=== PATIENT | female | born 1985 | race Caucasian/White ===

== ENCOUNTER 2016-10-07 19:19 | Emergency (ER) | payer OTHER ==
[2016-10-07 19:51] VITALS: BP 124/77; PULSE 84; TEMP 98.1; BMI 34.1
[2016-10-07] MEDS ORDERED: SULFAMETHOXAZOLE/TRIMETHOPRIM 800MG/160MG D.S. TABLET PO ONE (20:25)
[2016-10-07] MEDS ORDERED: OXYCODONE/APAP 5/325MG COMBO TABLET PO ONE (20:25)
--- NOTE | 2016-10-07 20:31 | PDOC ---
History of Present Illness - General Chief Complaint: Abscess Boil Stated Complaint: ABCESS BOIL Time Seen by Provider: 10/07/16 19:52 - History of Present Illness Initial Comments: 10/07/16 20:26 CHIEF COMPLAINT: HISTORY OF PRESENT ILLNESS: 11-year-old female with history of hydradenitis superlative presents to fast track with abscess to right axilla. Patient states she noticed the abscess approximately 3 days ago and it has increasingly become painful painful. Patient states she has had surgery on her left axilla at [facility]. She denies any recent shaving but does state that she also gets blackheads and abscesses to her genital region. She has not seen a cable driller due to insurance problems. Patient denies fever, nausea, vomiting , diarrhea. No recent travel or sick contacts. PAST MEDICAL HISTORY: Denies past medical history FAMILY HISTORY: Denies SOCIAL HISTORY: Denies tobacco, alcohol, illicit drug use. SURGICAL HISTORY: Denies ALLERGIES: No known drug allergies REVIEW OF SYSTEMS General/Constitutional: Denies fever or chills. Denies weakness, weight change. HEENT: Denies change in vision. Denies ear pain or discharge. Denies sore throat. Cardiovascular: Denies chest pain or shortness of breath. Respiratory: Denies cough, wheezing, or hemoptysis. Gastrointestinal: Denies nausea, vomiting, diarrhea or constipation. Denies rectal bleeding. Genitourinary: Denies dysuria, frequency, or change in urination. Musculoskeletal: Denies joint or muscle swelling or pain. Denies neck or back pain. Skin and breasts: Denies rash or easy bruising. Neurologic: Denies headache, vertigo, loss of consciousness, or loss of sensation. PHYSICAL EXAM General Appearance: Well-appearing, appropriately dressed. No apparent distress , no intoxication. HEENT: EOMI, PERRLA, normal ENT inspection, normal voice, TMs normal, pharynx normal. No conjunctival pallor. No photophobia, scleral icterus. Neck: Supple. Trachea midline. No tenderness, rigidity, carotid bruit, stridor , lymphadenopathy, or thyromegaly. Respiratory/Chest: Lungs CTAB. No shortness of breath, chest tenderness, respiratory distress, accessory muscle use. No crackles, rales, rhonchi, stridor , wheezing, dullness Cardiovascular: RRR. S1, S2. No JVD, murmur, bradycardia, tachycardia. Vascular Pulses: Dorsalis-Pedis (R): 2+, Dorsalis-Pedis (L): 2+ Gastrointestinal/Abdominal: Normal bowel sounds. Abdomen soft, non-distended. No tenderness or rebound tenderness. No organomegaly, pulsatile mass, guarding , hernia, hepatomegaly, splenomegaly. Lymphatic: No adenopathy, tenderness. Musculoskeletal/Extremities: Normal inspection. FROM of all extremities, normal capillary refill. Pelvis Stable. No CVA tenderness. No tenderness to extremities, pedal edema, swelling, erythema or deformity. Integumentary: Indurated abscess to right axilla proximately 2 cm x 3 cm in size. All are 1 cm x 1 cm abscess inferior to other abscess with purulent drainage. Appropriate color, dry, warm. 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 Fully oriented, alert. Appropriate mood/affect. Motor strength 5/5. No appreciable EOM palsy, facial droop or sensory deficit. Past History - Past Medical History Allergies/Adverse Reactions: Allergies Allergy/AdvReac Type Severity Reaction Status Date / Time vancomycin Allergy Intermediate facial Verified 10/07/16 19:48 itching, swelling Home Medications: Ambulatory Orders Clindamycin [Cleocin -] 300 mg PO BID #20 capsule 10/07/16 Oxycodone HCl/Acetaminophen [Percocet 5-325 mg Tablet] 1 tab PO Q6H PRN #12 tablet MDD 4 10/07/16 Ibuprofen [Motrin -] 800 mg PO Q6H #30 tablet 10/09/16 Ondansetron HCl [Zofran] 4 mg PO Q8H #12 tablet 10/09/16 Psychiatric Problems: Yes (anxiety,panic attacks) - Reproductive History (#): 2 Para: 1 - Immunization History Immunization Up to Date: Yes - Psycho/Social/Smoking Cessation Hx Anxiety: Yes Suicidal Ideation: No Smoking Status: Yes Smoking History: Never smoked Have you smoked in the past 12 months: No Number of Cigarettes Smoked Daily: 1 Information on smoking cessation initiated: No 'Breaking Loose' booklet given: 03/22/14 Hx Alcohol Use: No Drug/Substance Use Hx: No Substance Use Type: None Hx Substance Use Treatment: No *Physical Exam - Vital Signs Last Vital Signs Temp Pulse Resp BP Pulse Ox 98.1 F 84 14 124/77 98 10/07/16 19:49 10/07/16 19:49 10/07/16 19:49 10/07/16 19:49 10/07/16 19:49 Medical Decision Making - Medical Decision Making 10/07/16 20:29 31-year-old female with history of hydradenitis super T5 presents to fast track with abscess to right axilla. Patient refuses I&D at this time." I think I'm too anxious and will be to jumpy to do it today. I'm really afraid of the pain." Will Rx Bactrim and Percocet for pain control. Advised patient to monitor abscess and if abscess grows past marked area to return to ER. Advised patient to return to ER if fever, nausea, vomiting, diarrhea develop. Patient verbalize understanding and agrees to plan. 10/07/16 20:41 *DC/Admit/Observation/Transfer Diagnosis at time of Disposition: Hidradenitis axillaris - Discharge Dispostion Disposition: HOME Condition at time of disposition: Stable Admit: No - Prescriptions Prescriptions: Clindamycin [Cleocin -] 300 mg PO BID #20 capsule Oxycodone HCl/Acetaminophen [Percocet 5-325 mg Tablet] 1 tab PO Q6H PRN #12 tablet MDD 4 PRN Reason: Pain - Referrals Referrals: Lynsey Andres MD [Staff Physician] - - Patient Instructions Printed Discharge Instructions: Hidradenitis Suppurativa Additional Instructions: Please take medication as prescribed. As discussed you must call your insurance and follow-up with a cable driller. Also as discussed, if the abscess goes past the marked area, or you develop fever, nausea, vomiting, diarrhea, or any new or worsening symptoms, please return to the ER.
[2016-10-07] MEDS ORDERED: OXYCODONE/APAP 5/325MG COMBO TABLET ONE (20:34)
[2016-10-07] MEDS ORDERED: SULFAMETHOXAZOLE/TRIMETHOPRIM 800MG/160MG D.S. TABLET ONE (20:34)
== END 2016-10-07 20:59 | disposition home or self-care (01) ==
LOC: JERFT 19:19
DX: L73.2 Hidradenitis suppurativa (principal)
CPT/HCPCS: 84703; 99281-25

== ENCOUNTER 2017-01-29 11:28 | Emergency (ER) | payer OTHER ==
[2017-01-29 11:32] VITALS: BP 146/70; PULSE 99; TEMP 98.3; BMI 34.9
--- NOTE | 2017-01-29 12:54 | PDOC ---
History of Present Illness - General Chief Complaint: Abscess Boil Stated Complaint: ABSCESS BOIL Time Seen by Provider: 01/29/17 12:13 History Source: Patient Exam Limitations: No Limitations - History of Present Illness Initial Comments: 01/29/17 13:15 Chief complaint: Worsening abscess on buttocks History of present illness: Patient is a 31-year-old female with a history of hydradenitis suppuritiva today complaining of a worsening abscess on her left medial buttocks that started 3 days ago. Patient denies any fever. Patient denies any difficulty having a bowel movement. Timing/Duration: getting worse Severity: moderate (left medial buttock ) Past History - Past Medical History Allergies/Adverse Reactions: Allergies Allergy/AdvReac Type Severity Reaction Status Date / Time vancomycin Allergy Intermediate facial Verified 01/29/17 11:29 itching, swelling Home Medications: Ambulatory Orders Doxycycline Hyclate [Vibramycin -] 100 mg PO BID #20 cap 01/29/17 Psychiatric Problems: Yes (anxiety,panic attacks) - Reproductive History (#): 2 Para: 1 - Immunization History Immunization Up to Date: Yes - Psycho/Social/Smoking Cessation Hx Anxiety: Yes Suicidal Ideation: No Smoking Status: Yes Smoking History: Never smoked Have you smoked in the past 12 months: No Number of Cigarettes Smoked Daily: 1 Information on smoking cessation initiated: No 'Breaking Loose' booklet given: 03/22/14 Hx Alcohol Use: No Drug/Substance Use Hx: No Substance Use Type: None Hx Substance Use Treatment: No Review of Systems - Review of Systems Able to Perform ROS?: Yes Constitutional: No: Symptoms Reported HEENTM: No: Symptoms Reported Respiratory: No: Symptoms reported Cardiac (ROS): No: Symptoms Reported ABD/GI: No: Symptoms Reported : No: Symptoms Reported Musculoskeletal: No: Symptoms Reported Integumentary: Yes: Erythema (raised area of erythema approx 6 cm diameter left medial buttock ) *Physical Exam - Vital Signs Last Vital Signs Temp Pulse Resp BP Pulse Ox 98.3 F 99 H 18 146/70 100 01/29/17 11:29 01/29/17 11:29 01/29/17 11:29 01/29/17 11:01/29/17 11:29 - Physical Exam General Appearance: Yes: Appropriately Dressed Respiratory/Chest: positive: Lungs Clear, Normal Breath Sounds Cardiovascular: positive: Regular Rhythm, Regular Rate, S1, S2 Integumentary: positive: Erythema (left medial buttock area raised diameter 6 cm fluculant) Medical Decision Making - Medical Decision Making 01/29/17 13:17 Patient is a 31-year-old female with a history of hydradenitis suppuritiva today complaining of a worsening abscess on her left medial buttocks that started 3 days ago. Patient denies any fever. Patient denies any difficulty having a bowel movement. Abscess left medial buttocks Plan: Consult with urine HCG negative doxycycline 100 mg bid for 10 days sitz bath tid for 10-15 minutes Patient to take ibuprofen 600 mg every 6 hours as needed for pain and may take acetaminophen 1000 mg in between doses of ibuprofen if pain persists patient to follow up with primary later this week or return to ER if any fever , increased redness, pain 01/29/17 13:48 hcg negative 01/29/17 13:55 *DC/Admit/Observation/Transfer Diagnosis at time of Disposition: Hidradenitis suppurativa - Discharge Dispostion Disposition: HOME Condition at time of disposition: Stable - Patient Instructions Additional Instructions: Take ibuprofen 600 mg that she would have at home every 6 hours as needed for pain and may alternate with acetaminophen 1000 mg every 4 hours as needed for pain in between doses of ibuprofen Take sitz bath warm for at least three times a day for 10- 15 minutes Follow-up with your primary care provider later this week Return to emergency room if any fever, chills or worsening redness and size of reddened area or worsening pain Avoid time in the sun while taking this antibiotic must wear sunscreen Patient voiced understanding of discharge instructions and all questions were answered
--- NOTE | 2017-01-29 14:07 | CONSULT ---
Consult Consult Specialty:: General Surgery Referred by:: Love Carver Reason for Consultation:: perirectal hidradenitis - History of Present Illness Chief Complaint: red, swollen area left perirectal area History of Present Illness: 31yo F with many years' h/o hidradenitis at multiple sites - axillae, groins, inframammary folds, perirectal area, presents with pain, redness and swelling at the left gluteal/perirectal region for the last 3 days. She also has a small , early inflamed area under her left breast for about a week. In the past, she has taken Bactrim periodically for flares, but not in the last few months. She has not seen her PMD (Dr. Jorge Swift) nor her band reamer machine operator for "a while." She is still having normal BMs, last yesterday. No urinary complaints. About 4-5 years ago, she had excision of her left axilla for hidradenitis, and has had (likely I &D) procedure(s) on her right axilla as well. No systemic symptoms or complaints , including f/c, n/v. She does occasionally have drainage from her R axilla. The current flaring areas have not drained as of yet but are painful and tender. - History Source History Provided By: Patient Limitations to Obtaining History: No Limitations - Past Medical History ...LMP: 01/13/17 ...: No ...: 1 ...Para: 1 (10 yrs ago) Dermatology: Yes: Other (hidradenitis suppurativa) - Past Surgical History Past Surgical History: Yes: Additional Surgical History: excision of hidradenitis L axilla, I&D of same R axilla - Alcohol/Substance Use Hx Alcohol Use: Yes (rare social) History of Substance Use: reports: None - Smoking History Smoking history: Current some day smoker (1 cig/week, down from 1/day 8 mos ago , x ~10 years) Have you smoked in the past 12 months: Yes Aproximately how many cigarettes per day: 0 (1 a week) Home Medications - Allergies Allergies/Adverse Reactions: Allergies Allergy/AdvReac Type Severity Reaction Status Date / Time vancomycin Allergy Intermediate facial Verified 01/29/17 11:29 itching, swelling - Home Medications Home Medications: Ambulatory Orders Doxycycline Hyclate [Vibramycin -] 100 mg PO BID #20 cap 01/29/17 Family Disease History - Family Disease History Family History: Unremarkable Review of Systems - Review of Systems Constitutional: denies: Chills, Fever Eyes: denies: Blurred Vision, Double Vision HENT: denies: Difficult Swallowing, Nasal Congestion, Throat Pain Neck: denies: Swollen Glands, Tenderness Cardiovascular: denies: Chest Pain, Palpitations Respiratory: denies: Cough, SOB Gastrointestinal: denies: Abdominal Pain, Constipation, Diarrhea, Nausea, Vomiting Genitourinary: denies: Burning, Dysuria, Frequency, Urgency Breasts: reports: See HPI, Skin Changes (under left breast) Musculoskeletal: denies: Back Pain, Joint Pain, Muscle Pain Integumentary: reports: Other (multiple sites affected by hidradenitis - axillae , groins, inframammary, gluteal cleft/perirectal area). denies: Rash Neurological: denies: Dizziness, Headache, Weakness Physical Exam Vital Signs: Vital Signs Temperature 98.3 F 01/29/17 11:29 Pulse Rate 99 H 01/29/17 11:29 Respiratory Rate 18 01/29/17 11:29 Blood Pressure 146/70 01/29/17 11:29 O2 Sat by Pulse Oximetry (%) 100 01/29/17 11:29 Constitutional: Yes: Well Nourished, No Distress, Calm, Obese Eyes: Yes: Conjunctiva Clear, EOM Intact HENT: Yes: Atraumatic, Normocephalic Cardiovascular: Yes: Regular Rate and Rhythm. No: Murmur Respiratory: Yes: Regular, CTA Bilaterally Gastrointestinal: Yes: Normal Bowel Sounds, Soft, Other (healed Pfannenstiel scar). No: Tenderness Renal/: No: CVA Tenderness - Left, CVA Tenderness - Right, Menses Present Breast(s): Yes: Left (inferiorly above inframammary fold, just medial to nipple line, ~1cm erythematous round swelling, tender, mildly indurated, not frankly fluctuant, no active drainage), Skin Changes (few scattered healed spots in inframammary folds) Musculoskeletal: No: Back Pain, Joint Swelling Extremities: Yes: Other (L axilla with well-healed scars from excisional surgery ; R axilla with linear scars and indurated folds, tender, minimal erythema, no active drainage but patient does report intermittent drainage). No: Cool, Cyanosis Edema: No Peripheral Pulses WNL: Yes Integumentary: Yes: Other (bilateral groins with scattered healed spots/scars, no significant active lesions at this time). No: Rash Neurological: Yes: Alert, Oriented. No: Unsteady Gait Psychiatric: Yes: Alert, Oriented Labs: Hcg negative Problem List - Problems (1) Hidradenitis suppurativa Assessment/Plan: Pt with h/o multiple affected sites, no recent antibiotics, has not seen primary MD nor band reamer machine operator in recent past. Inflamed lesion under left breast and developing abscess in left perirectal/ gluteal area. Pt is to continue sitz baths tid and after each BM. Will have ER Rx Doxycycline x 10 days (may need longer) - pt counseled to avoid sun exposure and use sunscreen. She is not . Recommended alternating Tylenol and ibuprofen for pain - q6H each, 3 hours apart to alternate for synergy Avoiding narcotic to avoid constipation Pt should f/u later this week with PMD and/or band reamer machine operator - recommend reestablishing regular care with both. She should return to ER if symptoms worsen rather than improve, or for fever, spreading redness/hardness/fluctuance, severe pain.. To see me in clinic may require insurance referral and/or authorization. She may call the office to make an appointment at [phone]. Thank you for the opportunity to participate in the care of this patient. Code(s): L73.2 - HIDRADENITIS SUPPURATIVA
== END 2017-01-29 14:00 | disposition home or self-care (01) ==
LOC: JERFT 11:28
DX: L02.31 Cutaneous abscess of buttock (principal); L73.2 Hidradenitis suppurativa
CPT/HCPCS: 84703; 99281-25

== ENCOUNTER 2017-04-20 17:45 | Emergency (ER) | payer OTHER ==
[2017-04-20 18:12] VITALS: BP 133/75; PULSE 89; TEMP 98.7; BMI 34.9
--- NOTE | 2017-04-20 20:06 | PDOC ---
History of Present Illness - General Chief Complaint: Abscess Boil Stated Complaint: ABSCESS BOIL Time Seen by Provider: 04/20/17 20:01 History Source: Patient Exam Limitations: No Limitations - History of Present Illness Initial Comments: 04/20/17 20:07 Chin here well-known to this emergency Department with hidradenitis and recurrent abscess to her right axilla. States started approximately 3 days ago and has been unable to open with hot compresses. Denies fever but has exquisite pain. Patient has long history of same with excision of foot glands to her left axilla a few years ago. Recurrence of abscesses has continued. 04/20/17 20:43 Timing/Duration: reports: constant, getting worse, intermittent Severity: Yes: moderate Location: reports: other (axilla) Associated Symptoms: reports: fever, malaise Past History - Travel Traveled outside of the country in the last 30 days: No Close contact w/someone who was outside of country & ill: No - Past Medical History Allergies/Adverse Reactions: Allergies Allergy/AdvReac Type Severity Reaction Status Date / Time vancomycin Allergy Intermediate facial Verified 04/20/17 18:12 itching, swelling Home Medications: Ambulatory Orders Oxycodone HCl/Acetaminophen [Percocet 5-325 mg Tablet] 1 tab PO Q6H #10 tablet MDD 6 04/20/17 Sulfamethoxazole/Trimethoprim [Bactrim Ds -] 1 tab PO BID #14 tablet 04/20/17 Psychiatric Problems: Yes (anxiety,panic attacks) - Reproductive History (#): 2 Para: 1 - Immunization History Immunization Up to Date: Yes - Suicide/Smoking/Psychosocial Hx Smoking Status: Yes Smoking History: Current every day smoker Have you smoked in the past 12 months: No Number of Cigarettes Smoked Daily: 0 (1 a week) If you are a former smoker, when did you quit?: 2yrs Information on smoking cessation initiated: No 'Breaking Loose' booklet given: 03/22/14 Hx Alcohol Use: No Drug/Substance Use Hx: No Substance Use Type: None Hx Substance Use Treatment: No Review of Systems - Review of Systems Able to Perform ROS?: Yes Is the patient limited Sami proficient: Yes Constitutional: Yes: See HPI HEENTM: Yes: Symptoms Reported Musculoskeletal: Yes: Symptoms Reported, Joint Pain, Joint Swelling (right arm shoulder) Integumentary: Yes: Symptoms Reported, See HPI All Other Systems: Reviewed and Negative *Physical Exam - Vital Signs Last Vital Signs Temp Pulse Resp BP Pulse Ox 98.7 F 89 18 133/75 100 04/20/17 18:03 04/20/17 18:03 04/20/17 18:03 04/20/17 18:03 04/20/17 18:03 - Physical Exam General Appearance: Yes: Nourished, Appropriately Dressed, Apparent Distress, Mild Distress, Moderate Distress HEENT: positive: TOR, Normal ENT Inspection, TMs Normal, Pharynx Normal Neck: positive: Supple, Lymphadenopathy (R), Lymphadenopathy (L) Respiratory/Chest: positive: Lungs Clear, Normal Breath Sounds Musculoskeletal: positive: Normal Inspection Extremity: positive: Normal Capillary Refill, Normal Inspection. negative: Normal Range of Motion Integumentary: positive: Other (erythematous right axilla with extensive scarring and pointing lesion with 1 large abscess approximately 3 cm midpoint. Patient has exquisite tenderness at same site.). 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 Packing placed patient given first dose of Bactrim, 2 Percocet tablets for pain relief, and will follow up with surgery for definitive treatment *DC/Admit/Observation/Transfer Diagnosis at time of Disposition: Hidradenitis axillaris, Abscess of axilla, right - Discharge Dispostion Disposition: HOME Condition at time of disposition: Stable Admit: No - Referrals Referrals: Glenis Swift MD [Primary Care Provider] - Donta Min MD [Staff Physician] - - Patient Instructions Printed Discharge Instructions: DI for Incision and Drainage of a Skin Abscess Additional Instructions: Rest, keep area elevated. Avoid strenuous activity or exercise until wound is healed Use hot soaks to area to bring more blood to the surface and encourage drainage May change dressings as needed to keep clean - trying to avoid removal of packing for 2 days. If packing needs to be changed, return to emergency department or with your followup physician for wound care and evaluation and repacking as needed If packing needs to be removed, then in 2 days, while in the shower remove dressing and quickly pull the packing taken out. Allow water from shower to wash area thoroughly for 2-3 minutes, and pat dry upon exit of shower and replace dressing. Change his dressing daily until the wound is completely healed. May use Tylenol or Motrin for mild pain relief Use stronger medications as directed and prescribed Continue all medications as prescribed Followup with private physician in 2-3 days for wound check Return to emergency Department for worsening swelling, pain, redness, fevers as needed Mefoxin resistant Staphylococcus aureus is a normal skin bacteria and is mutated to be resistant to penicillin type drugs. The wounds may be draining and there for contagious to other family members. Vigorous handwashing and avoidance of skin contact of draining lesions it is important . All family members Will need to be protected and perform thorough cleaning of linens /towels/clothing. To decontaminate household: Soak in bath; in one half cup of bleach in 1 full tub of water 2 times a week x3 weeks With own scrub Nylon use chlorohexidine soap twice a week to decontaminate skin Clean tub /toilet with bleach wipes after each use Do not use same linens/avoid contact until lesions are healed Followup with private physician/bale tie machine operator Take all of Bactrim as directed May use ibuprofen or Tylenol for pain relief Followup with PMD in one week if no resolution Make appointment with bale tie machine operator for evaluation when possible - Post Discharge Activity Forms/Work/School Notes: Back to Work
[2017-04-20] MEDS ORDERED: SULFAMETHOXAZOLE/TRIMETHOPRIM 800MG/160MG D.S. TABLET PO ONE (20:16)
[2017-04-20] MEDS ORDERED: SULFAMETHOXAZOLE/TRIMETHOPRIM 800MG/160MG D.S. TABLET ONE (20:28)
== END 2017-04-20 20:53 | disposition home or self-care (01) ==
LOC: JERFT 17:45
PROC: 0X943ZZ Drainage of Right Axilla, Percutaneous Approach (ICD-10-PCS; principal; 2017-04-20)
DX: L73.2 Hidradenitis suppurativa (principal)
CPT/HCPCS: 10060; 87070; 87205; 99281-25

== ENCOUNTER 2018-01-13 06:23 | Emergency (ER) | payer OTHER ==
[2018-01-13 06:54] VITALS: BP 106/52; PULSE 83; TEMP 97.1; BMI 35.2
--- NOTE | 2018-01-13 07:21 | PDOC ---
Attending Attestation - HPI HPI: 01/13/18 08:21 The patient is a 32 year old female with significant PMH who presents to the emergency department with vaginal bleeding for 1 day. The patient report that she was at home when she noticed her vaginal bleeding with intercourse. The patient reports that she took a positive at home test and reports being at least 6 week . She reports associated lower abdominal cramping with her vaginal bleeding. The patient reports that this is her third (). The patient states that her last period was 8 weeks ago. The patient reports that she has an upcoming OB appoinment but was concerned about her vaginal bleeding. The patient denies any other symptoms. She denies any urinary frequency, urgency, dysuria, or hematuria. She denies any fever, chills , nausea, vomit, diarrhea and constipation. She denies any chest pain, shortness of breath, headache and dizziness. The patient denies any other complaints. Allergies: Vancomycin PCP: Dr. Swift OB: Dr. Fernandez - Physicial Exam PE: 01/13/18 08:21 GENERAL: Awake, alert, and fully oriented, in no acute distress HEAD: No signs of trauma EYES: PERRLA, EOMI, sclera anicteric, conjunctiva clear ENT: Auricles normal inspection, hearing grossly normal, nares patent, oropharynx clear without exudates. Moist mucosa NECK: Normal ROM, supple, no lymphadenopathy, JVD, or masses LUNGS: Breath sounds equal, clear to auscultation bilaterally. No wheezes, and no crackles HEART: Regular rate and rhythm, normal S1 and S2, no murmurs, rubs or gallops ABDOMEN: Soft,obese, nontender, normoactive bowel sounds. No guarding, no rebound. No masses EXTREMITIES: Normal range of motion, no edema. No clubbing or cyanosis. No cords, erythema, or tenderness NEUROLOGICAL: Cranial nerves II through XII grossly intact. Normal speech, normal gait SKIN: Warm, Dry, normal turgor, no rashes or lesions noted. Vaginal exam as per resident note. Documentation prepared by Yamile Finch, acting as medical staff physician for Kanwal Hui MD. <Yamile Finch - Last Filed: 01/13/18 08:21> - Resident Resident Name: Yola Cole - ED Attending Attestation I have performed the following: I have examined & evaluated the patient, The case was reviewed & discussed with the resident, I agree w/resident's findings & plan, Exceptions are as noted - Medical Decision Making 01/13/18 07:21 I, Dr. Kanwal Hui, DO, attest that this document has been prepared under my direction and personally reviewed by me in its entirety. I further attest, that it accurately reflects all work, treatment, procedures and medical decision -making performed by me. 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
--- NOTE | 2018-01-13 07:46 | PDOC ---
History of Present Illness - General Chief Complaint: Vaginal Bleeding Stated Complaint: VAGINAL BLEEDING (6 WEEKS PREG) Time Seen by Provider: 01/13/18 07:15 History Source: Patient Exam Limitations: No Limitations - History of Present Illness Initial Comments: This is a 32 YO (~6 wks by LMP), prior D&C, and treatment for BV within the past month, who p/w light bright red vaginal bleeding for the past 5 hours onset immediately after having sexual intercourse (which she described as not rough). The bleeding has mostly stopped and she denies any passage of light-colored tissue or blood clots. She additionally notes very mild lower abdominal cramping but attributes this to being nervous, and notes this has been present earlier this as well. She denies fever, chills, nausea, vomiting, diarrhea, constipation, abnormal vaginal discharge, rashes, headache, dizziness, neck/back pain, chest pain, SOB, or other symptoms. Past History - Past Medical History Allergies/Adverse Reactions: Allergies Allergy/AdvReac Type Severity Reaction Status Date / Time vancomycin Allergy Intermediate facial Verified 01/13/18 06:51 itching, swelling Home Medications: Ambulatory Orders Oxycodone HCl/Acetaminophen [Percocet 5-325 mg Tablet] 1 tab PO Q6H #10 tablet MDD 6 04/20/17 Psychiatric Problems: Yes (anxiety,panic attacks) - Reproductive History (#): 2 Para: 1 - Immunization History Immunization Up to Date: Yes - Suicide/Smoking/Psychosocial Hx Smoking Status: Yes Smoking History: Current every day smoker Have you smoked in the past 12 months: Yes Number of Cigarettes Smoked Daily: 5 If you are a former smoker, when did you quit?: 2yrs Information on smoking cessation initiated: No 'Breaking Loose' booklet given: 03/22/14 Hx Alcohol Use: No Drug/Substance Use Hx: No Substance Use Type: None Hx Substance Use Treatment: No Review of Systems - Review of Systems Able to Perform ROS?: Yes Constitutional: No: Chills, Fever, Unexplained wgt Loss HEENTM: No: Nose Congestion, Throat Pain Respiratory: No: Cough, Shortness of Breath Cardiac (ROS): No: Chest Pain, Palpitations ABD/GI: Yes: Other (mild low abdominal cramping). No: Constipated, Diarrhea, Nausea, Vomiting : Yes: Other (vaginal bleeding). No: Burning, Dysuria Musculoskeletal: No: Back Pain, Neck Pain Integumentary: No: Bruising, Rash Neurological: No: Headache, Numbness, Tingling, Weakness, Dizziness Endocrine: No: Unexplained Weight Gain, Unexplained Weight Loss *Physical Exam - Vital Signs Last Vital Signs Temp Pulse Resp BP Pulse Ox 97.1 F L 83 20 106/52 99 01/13/18 06:51 01/13/18 06:51 01/13/18 06:51 01/13/18 06:51 01/13/18 06:51 - Physical Exam General Appearance: Yes: Nourished, Appropriately Dressed, Obese, Other ( initially mildly tearful, alert, oriented, conversive, accompanied by significant other, answering questions appropriately). No: Apparent Distress HEENT: positive: EOMI, TOR, Normal Voice, Hearing Grossly Normal. negative: Scleral Icterus (R), Scleral Icterus (L), Nasal Congestion Neck: positive: Trachea midline, Supple. negative: Tender, Rigid Respiratory/Chest: positive: Lungs Clear, Normal Breath Sounds. negative: Respiratory Distress, Crackles, Rhonchi, Stridor, Wheezing Cardiovascular: positive: Regular Rhythm, Regular Rate, S1, S2. negative: Edema , JVD, Murmur Female Pelvic Exam: positive: normal external exam, cervical os closed, normal adnexa, vaginal bleeding (minimal with one small dark clot). negative: CMT, discharge, lesions, adnexal tenderness Gastrointestinal/Abdominal: positive: Normal Bowel Sounds, Flat, Soft. negative : Tender, Organomegaly, Pulsatile Mass, Guarding Musculoskeletal: positive: Normal Inspection. negative: Decreased Range of Motion, Vertebral Tenderness Extremity: positive: Normal Capillary Refill, Normal Inspection, Normal Range of Motion. negative: Tender, Cyanosis Integumentary: positive: Normal Color, Dry, Warm. negative: Erythema, Rash, Bruising Neurologic: positive: economics faculty member II-XII NML intact (grossly), Fully Oriented, Alert, Normal Mood/Affect, Normal Response, Motor Strength 5/5. negative: Facial Droop , Numbness, Sensory Deficit, Confused, Disoriented ED Treatment Course - LABORATORY CBC & Chemistry Diagram: 01/13/18 08:16 01/13/18 08:16 Medical Decision Making - Medical Decision Making 01/13/18 07:40 First trimester female p/w vaginal bleeding and lower abdominal pain at <20 wks gestation. Initial Vital Signs Temp Pulse Resp BP Pulse Ox 97.1 F L 83 20 106/52 99 01/13/18 06:51 01/13/18 06:51 01/13/18 06:51 01/13/18 06:51 01/13/18 06:51 Exam: well appearing, a bit tearful/anxious, normal heart/lung/abdomen exam, pelvic with os closed, small amount of medium red blood with one clot and no POC visualized, no tenderness. DDX IBNLT: threatened/inevitable/incomplete/complete/septic , ectopic, PID, TOA/cervicitis, endometritis, ruptured ovarian cyst, ovarian torsion, malignancy, menorrhagia, endometriosis, rectal bleed, hematuria, constipation, fibroids, etc. W/U ordered: CBCD CMP Mg T&S UA UCx hCG Quant TVUS. TX ordered: None Laboratory Tests 01/13/18 01/13/18 01/13/18 08:16 08:16 08:16 WBC 12.5 H D RBC 4.55 Hgb 11.4 Hct 35.5 MCV 78.2 L MCH 25.1 L MCHC 32.1 RDW 17.0 H Plt Count 329 MPV 7.8 Absolute Neuts (auto) 9.5 Neutrophils % 76.2 Lymphocytes % 17.3 Monocytes % 5.5 Eosinophils % 0.5 Basophils % 0.5 Nucleated RBC % 0 Sodium 135 L Potassium 4.1 Chloride 102 Carbon Dioxide 25 Anion Gap 8 BUN 8 Creatinine 0.8 Creat Clearance w eGFR > 60 Random Glucose 85 Calcium 8.9 Magnesium 1.9 Total Bilirubin 0.3 D AST 12 L ALT 23 Alkaline Phosphatase 71 Total Protein 8.4 H Albumin 3.5 Beta HCG, Quant 60472.6 Urine Color Straw Urine Appearance Clear Urine pH 5.0 Ur Specific [place] 1.009 Urine Protein Negative Urine Glucose (UA) Negative Urine Ketones Negative Urine Blood 1+ H Urine Nitrite Negative Urine Bilirubin Negative Urine Urobilinogen Negative Ur Leukocyte Esterase Negative Urine WBC (Auto) <1 Urine RBC (Auto) None Ur Epithelial Cells Rare Blood Type Antibody Screen 01/13/18 08:16 WBC RBC Hgb Hct MCV MCH MCHC RDW Plt Count MPV Absolute Neuts (auto) Neutrophils % Lymphocytes % Monocytes % Eosinophils % Basophils % Nucleated RBC % Sodium Potassium Chloride Carbon Dioxide Anion Gap BUN Creatinine Creat Clearance w eGFR Random Glucose Calcium Magnesium Total Bilirubin AST ALT Alkaline Phosphatase Total Protein Albumin Beta HCG, Quant Urine Color Urine Appearance Urine pH Ur Specific [place] Urine Protein Urine Glucose (UA) Urine Ketones Urine Blood Urine Nitrite Urine Bilirubin Urine Urobilinogen Ur Leukocyte Esterase Urine WBC (Auto) Urine RBC (Auto) Ur Epithelial Cells Blood Type A POSITIVE Antibody Screen Negative Blood type is: A positive US: gestational sac identified but no yolk sac, age estimated 5 wks 3 days, myomatous uterus. Reassessment: repeat exam unchanged Repeat VS: DISCHARGE The Pt does not require Rhogam. Workup is not concerning for emergency-level pathology at this time. The Pt is appropriate for discharge home w/ close outpatient f/u. She will also follow up with her BLEACH BOILER PACKER as scheduled tomorrow. She will take primarily Tylenol for pain. Specific return precautions are discussed and they will come back to the ER if necessary. *DC/Admit/Observation/Transfer Diagnosis at time of Disposition: Vaginal bleeding during - Discharge Dispostion Disposition: HOME Condition at time of disposition: Stable Decision to Admit order: No - Referrals Referrals: Glenis Swift MD [Primary Care Provider] - - Patient Instructions Additional Instructions: You were seen in the ER for vaginal bleeding in early . We did an exam , laboratory work on your blood and urine, and an ultrasound. After our assessment, we do not think you are having a medical emergency at this time, and you are safe to go home. Please take Tylenol for any mild-moderate pain. Follow up with your advertising writer as scheduled tomorrow. You also need a repeat ultrasound in one week, and a repeat beta-hCG ( hormone) test in 2 days. Please come back to the ER at any time (24 hours a day) for any new or worsening symptoms, like worsening pelvic pain, discharge, high fever, headache , seizure, fainting, anemia, large amount of blood loss, or other symptoms. If you are having severe or life threatening symptoms, or symptoms that make it unsafe to drive or have someone drive you, please call 911. - Post Discharge Activity
[2018-01-13 08:28] LABS: BASO % 0.5 % (0-2.0); EOS % 0.5 % (0-4.5); HEMATOCRIT 35.5 % (32.4-45.2); HEMOGLOBIN 11.4 GM/dL (10.7-15.3); LYMPH % 17.3 % (8-40); MCH 25.1 pg (25.7-33.7); MCHC 32.1 g/dl (32.0-36.0); MEAN CELL VOLUME 78.2 fl (80-96); MEAN PLT VOLUME 7.8 fl (7.5-11.1); MONO % 5.5 % (3.8-10.2); NEUT % 76.2 % (42.8-82.8); PLATELET COUNT 329 K/MM3 (134-434); RBC 4.55 M/mm3 (3.60-5.2); WHITE BLOOD COUNT 12.5 K/mm3 (4.0-10.0)
[2018-01-13 08:30] LABS: URINE APPEARANCE CLEAR; URINE BILIRUBIN NEGATIVE (<2.0 mg/dL); URINE COLOR STRAW; URINE GLUCOSE (UA) NEGATIVE (NEGATIVE); URINE KETONE NEGATIVE (NEGATIVE); URINE LEUK ESTERASE NEGATIVE (NEGATIVE); URINE NITRITE NEGATIVE (NEGATIVE); URINE PROTEIN NEGATIVE (NEGATIVE); URINE UROBILINOGEN NEGATIVE mg/dL (0.2-1.0)
[2018-01-13 08:34] LABS: EPI CELLS RARE /HPF (FEW)
[2018-01-13 08:49] LABS: ALBUMIN 3.5 g/dl (3.4-5.0); ANION GAP 8 (8-16); BLOOD UREA NITROGEN 8 mg/dL (7-18); CALCIUM 8.9 mg/dL (8.5-10.1); CHLORIDE 102 mmol/L (98-107); CO2 25 mmol/L (21-32); CREATININE 0.8 mg/dL (0.55-1.02); GLUCOSE,RANDOM 85 mg/dL (74-106); MAGNESIUM 1.9 mg/dL (1.8-2.4); POTASSIUM 4.1 mmol/L (3.5-5.1); SGOT/AST 12 U/L (15-37); SGPT/ALT 23 U/L (12-78); SODIUM 135 mmol/L (136-145); TOT PROT 8.4 g/dl (6.4-8.2)
[2018-01-13 09:06] LABS: ALK PHOS 71 U/L (45-117); BILIRUBIN,TOTAL 0.3 mg/dL (0.2-1.0)
== END 2018-01-13 11:30 | disposition home or self-care (01) ==
LOC: JER 06:23
DX: O26.891 Other specified pregnancy related conditions, first trimester (principal); O20.8 Other hemorrhage in early pregnancy; Z3A.01 Less than 8 weeks gestation of pregnancy
CPT/HCPCS: 36415; 76817-TC; 80053; 81003; 81015; 83735; 84702; 85025; 86850; 86900; 86901; 87086; 99281-25

== ENCOUNTER 2018-04-16 21:53 | Emergency (ER) | payer OTHER ==
[2018-04-16 22:10] VITALS: BP 112/70; PULSE 115; TEMP 99.2; BMI 37.4
--- NOTE | 2018-04-16 22:46 | PDOC ---
History of Present Illness - General History Source: Patient Exam Limitations: No Limitations - History of Present Illness Travel History: No Initial Comments: 04/16/18 23:36 The patient is a 32-year-old female, ; 1 miscarriage, with no past medical history, who presents to the ED with left-sided abdominal cramping that began yesterday. Patients symptoms worsened today. She denies any vaginal bleeding. She denies any fevers or chills. She denies any right-sided abdominal pain. The patient admits to having sexual intercourse today. She called her OBs office today and was told to drink a lot of water. Patient had one episode of vomiting today which helped to alleviate the pain. The patient denies any diarrhea or constipation. She denies any urinary symptoms. Allergies: vancomycin. Surgical History: . Social History: Denies. Surgical History: Denies. <Annia Posadas - Last Filed: 04/16/18 23:36> <Brittnee Jenkins - Last Filed: 04/17/18 00:41> - General Chief Complaint: Pain Stated Complaint: 19 WEEKS ,ABDOMINAL PAIN Past History <Annia Posadas - Last Filed: 04/16/18 23:36> - Past Medical History COPD: No Psychiatric Problems: Yes (anxiety,panic attacks) - Reproductive History (#): 2 Para: 1 - Immunization History Immunization Up to Date: Yes - Suicide/Smoking/Psychosocial Hx Smoking Status: Yes Smoking History: Former smoker Have you smoked in the past 12 months: Yes Number of Cigarettes Smoked Daily: 5 If you are a former smoker, when did you quit?: 2yrs Information on smoking cessation initiated: No 'Breaking Loose' booklet given: 03/22/14 Hx Alcohol Use: No Drug/Substance Use Hx: No Substance Use Type: None Hx Substance Use Treatment: No <Brittnee Jenkins - Last Filed: 04/17/18 00:41> - Past Medical History Allergies/Adverse Reactions: Allergies Allergy/AdvReac Type Severity Reaction Status Date / Time vancomycin Allergy Intermediate facial Verified 04/16/18 22:10 itching, swelling Home Medications: Ambulatory Orders Prenat 115/Iron Fum/Folic/Dss [ 19 Tablet] 1 each PO DAILY 04/16/18 Review of Systems - Review of Systems Able to Perform ROS?: Yes Comments:: 04/16/18 23:37 CONSTITUTIONAL: Absent: fever, chills, diaphoresis, generalized weakness, malaise, loss of appetite HEENT: Absent: rhinorrhea, nasal congestion, throat pain, throat swelling, difficulty swallowing, mouth swelling, ear pain, eye pain, visual Changes CARDIOVASCULAR: Absent: chest pain, syncope, palpitations, irregular heart rate, lightheadedness , peripheral edema RESPIRATORY: Absent: cough, shortness of breath, dyspnea with exertion, orthopnea, wheezing, stridor, hemoptysis GASTROINTESTINAL: Present: abdominal pain, nausea, vomiting. Absent: abdominal distension, diarrhea, constipation, melena, hematochezia GENITOURINARY: Absent: dysuria, frequency, urgency, hesitancy, hematuria, flank pain, genital pain MUSCULOSKELETAL: Absent: myalgia, arthralgia, joint swelling SKIN: Absent: rash, itching, pallor HEMATOLOGIC/IMMUNOLOGIC: Absent: easy bleeding, easy bruising, lymphadenopathy, frequent infections ENDOCRINE: Absent: unexplained weight gain, unexplained weight loss, heat intolerance, cold intolerance NEUROLOGIC: Absent: headache, focal weakness or paresthesias, dizziness, unsteady gait, seizure, mental status changes, bladder or bowel incontinence PSYCHIATRIC: Absent: anxiety, depression, suicidal or homicidal ideation, hallucinations. <Annia Posadas - Last Filed: 04/16/18 23:36> *Physical Exam - Vital Signs Last Vital Signs Temp Pulse Resp BP Pulse Ox 99.2 F 115 H 19 112/70 100 04/16/18 22:07 04/16/18 22:07 04/16/18 22:07 04/16/18 22:07 04/16/18 22:07 - Physical Exam Comments: 04/16/18 23:37 GENERAL: Well developed, well nourished. Awake and alert. No acute distress. HEENT: Normocephalic, atraumatic. PERRLA, EOMI. No conjunctival pallor. Sclera are non- icteric. Moist mucous membranes. Oropharynx is clear. NECK: Supple. Full ROM. No JVD. Carotid pulses 2+ and symmetric, without bruits. No thyromegaly. No lymphadenopathy. CARDIOVASCULAR: Regular rate and rhythm. No murmurs, rubs, or gallops. Distal pulses are 2+ and symmetric. PULMONARY: No evidence of respiratory distress. Lungs clear to auscultation bilaterally. No wheezing, rales or rhonchi. ABDOMINAL: (+)Protuberant belly, Left-sided lower abdominal discomfort. Soft. Non- distended. No rebound or guarding. No organomegaly. Normoactive bowel sounds. MUSCULOSKELETAL Normal range of motion at all joints. No bony deformities or tenderness. No CVA tenderness. EXTREMITIES: No cyanosis. No clubbing. No edema. No calf tenderness. SKIN: Warm and dry. Normal capillary refill. No rashes. No jaundice. NEUROLOGICAL: Alert, awake, appropriate. Cranial nerves 2-12 intact. No deficits to light touch and temperature in face, upper extremities and lower extremities. No motor deficits in the in face, upper extremities and lower extremities. PSYCHIATRIC: Cooperative. Good eye contact. Appropriate mood and affect. <Annia Posadas - Last Filed: 04/16/18 23:36> - Vital Signs Last Vital Signs Temp Pulse Resp BP Pulse Ox 99.2 F 115 H 19 112/70 100 04/16/18 22:07 04/16/18 22:07 04/16/18 22:07 04/16/18 22:07 04/16/18 22:07 <Brittnee Jenkins - Last Filed: 04/17/18 00:41> Medical Decision Making - Medical Decision Making 04/17/18 00:37 ultrasound. Ultrasound shows cardiac rate is 120 bpm Posterior placenta without previa. Amniotic fluid appears unremarkable. Partially visualized structures demonstrate no gross sonographic abnormality. There is a 9 cm intramural fibroid seen within the left side of the uterine body. There is no obvious sonographic evidence of intralesional hemorrhage or degenerative change Single viable intrauterine gestation of approximately 9 weeks and 2 days with a fibroid. Pelvic pain in second trimester, fibroid. Plan follow-up Dr. Mendoza <Brittnee Jenkins - Last Filed: 04/17/18 00:41> *DC/Admit/Observation/Transfer - Attestations Scribe Attestion: 04/16/18 23:42 Documentation prepared by Annia Posadas, acting as medical stenographer for Brittnee Jenkins MD. <Annia Posadas - Last Filed: 04/16/18 23:36> <Brittnee Jenkins - Last Filed: 04/17/18 00:41> Diagnosis at time of Disposition: Second trimester Fibroid Qualifiers: Uterine leiomyoma location: intramural Qualified Code(s): D25.1 - Intramural leiomyoma of uterus - Discharge Dispostion Disposition: HOME Condition at time of disposition: Stable - Referrals Referrals: Glenis Swift MD [Primary Care Provider] - Valdemar Mendoza MD [Staff Physician] - - Patient Instructions Printed Discharge Instructions: DI for Uterine Fibroids, DI for -- Discomforts and Remedies Additional Instructions: please follow up with your consumer recruiter - Post Discharge Activity
== END 2018-04-17 01:01 | disposition home or self-care (01) ==
LOC: JER 21:53
DX: O34.12 Maternal care for benign tumor of corpus uteri, second trimester (principal); D25.1 Intramural leiomyoma of uterus; Z3A.19 19 weeks gestation of pregnancy
CPT/HCPCS: 76815-TC; 99281-25

== ENCOUNTER 2018-11-20 16:26 | Emergency (ER) | payer OTHER ==
--- NOTE | 2018-11-20 16:38 | PDOC ---
Rapid Medical Evaluation Time Seen by Provider: 11/20/18 16:37 Medical Evaluation: Allergies Allergy/AdvReac Type Severity Reaction Status Date / Time vancomycin Allergy Intermediate facial Verified 04/16/18 22:10 itching, swelling 11/20/18 16:37 I have performed a brief in-person evaluation of this patient. The patient presents with a chief complaint of: "I have an abscess in my groin. " pt reports b/l. Pertinent physical exam findings: deferred I have ordered the following: nothing The patient will proceed to the ED for further evaluation. Discharge Disposition - Diagnosis Abscess - Referrals - Patient Instructions - Post Discharge Activity
[2018-11-20 16:40] VITALS: BP 134/71; PULSE 91; TEMP 98.9; BMI 35.7
--- NOTE | 2018-11-20 17:50 | PDOC ---
History of Present Illness - General Chief Complaint: Abscess Boil Stated Complaint: boil Time Seen by Provider: 11/20/18 16:37 History Source: Patient Exam Limitations: No Limitations - History of Present Illness Initial Comments: 11/20/18 17:44 Patient is here with recurrence of severe hydroadenitis in groin/perineum. States had outbreak started again last week which is progressively worsened to multiple areas of large in painful swelling and multiple small abscess that are pointing and draining purulent drainage. Patient has had numerous evaluations, has had numerous interactions with infectious disease doctors and lead applier. Had taken Humira in the past with some good resolved but hasn't taken those treatments in a few years. Patient denies fever, has significant tenderness and erythema to groin. Severity: Yes: moderate, severe Location: reports: genitalia, torso Respiratory Risk Factors: reports: other Associated Symptoms: reports: blisters, rash (hidradenitis), swelling/mass/lumps Past History - Travel Traveled outside of the country in the last 30 days: No Close contact w/someone who was outside of country & ill: No - Past Medical History Allergies/Adverse Reactions: Allergies Allergy/AdvReac Type Severity Reaction Status Date / Time vancomycin Allergy Intermediate facial Verified 11/20/18 16:39 itching, swelling Home Medications: Ambulatory Orders Chlorhexidine Gluconate [Hibiclens For Decolonization -] 1 applic TP DAILY #1 bottle 11/20/18 Oxycodone HCl/Acetaminophen [Percocet 5-325 mg Tablet -] 1 - 2 tab PO Q4H PRN # 7 tablet MDD 4 11/20/18 Sulfamethoxazole/Trimethoprim [Bactrim *Ds*] 1 each PO BID #30 tablet 11/20/18 COPD: No Psychiatric Problems: Yes (anxiety,panic attacks) - Reproductive History (#): 2 Para: 1 Spontaneous : 1 - Immunization History Immunization Up to Date: Yes - Suicide/Smoking/Psychosocial Hx Smoking Status: Yes Smoking History: Never smoked Have you smoked in the past 12 months: Yes Number of Cigarettes Smoked Daily: 5 If you are a former smoker, when did you quit?: 2yrs Information on smoking cessation initiated: No 'Breaking Loose' booklet given: 03/22/14 Hx Alcohol Use: No Drug/Substance Use Hx: No Substance Use Type: None Hx Substance Use Treatment: No Review of Systems - Review of Systems Able to Perform ROS?: Yes Is the patient limited Vietnamese proficient: Yes Constitutional: Yes: Symptoms Reported, See HPI, Loss of Appetite, Malaise. No : Fever HEENTM: No: Symptoms Reported Respiratory: No: Symptoms reported Integumentary: Yes: Symptoms Reported, See HPI, Erythema, Lesions, Lumps, Other All Other Systems: Reviewed and Negative *Physical Exam - Vital Signs Last Vital Signs Temp Pulse Resp BP Pulse Ox 98.9 F 91 H 19 134/71 100 11/20/18 16:38 11/20/18 16:38 11/20/18 16:38 11/20/18 16:38 11/20/18 16:38 - Physical Exam General Appearance: Yes: Appropriately Dressed, Apparent Distress, Moderate Distress, Severe Distress HEENT: positive: TOR, Normal ENT Inspection, TMs Normal, Pharynx Normal Neck: positive: Supple. negative: Tender, Lymphadenopathy (R), Lymphadenopathy (L) Gastrointestinal/Abdominal: positive: Soft Extremity: positive: Normal Capillary Refill, Normal Inspection Integumentary: positive: Swelling, Ecchymosis, Other (extensive and numerous cellulitic lesions to groin/perineum and vulva. some pointing with purulent drainage. 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 Will start on Bactrim and patient will continue to soak and provided with Percocet *DC/Admit/Observation/Transfer Diagnosis at time of Disposition: Hydradenitis, Abscess, perineum - Discharge Dispostion Disposition: HOME Condition at time of disposition: Stable Decision to Admit order: No - Prescriptions Prescriptions: Oxycodone HCl/Acetaminophen [Percocet 5-325 mg Tablet -] 1 - 2 tab PO Q4H PRN # 7 tablet MDD 4 PRN Reason: Pain Sulfamethoxazole/Trimethoprim [Bactrim *Ds*] 1 each PO BID #30 tablet - Referrals - Patient Instructions Printed Discharge Instructions: DI for Skin Abscess Additional Instructions: Mefoxin resistant Staphylococcus aureus is a normal skin bacteria and is mutated to be resistant to penicillin type drugs. The wounds may be draining and there for contagious to other family members. Vigorous handwashing and avoidance of skin contact of draining lesions it is important . All family members Will need to be protected and perform thorough cleaning of linens /towels/clothing. To decontaminate household: Soak in bath; in one half cup of bleach in 1 full tub of water 2 times a week x3 weeks With own scrub Nylon use chlorohexidine soap twice a week to decontaminate skin Clean tub /toilet with bleach wipes after each use Do not use same linens/avoid contact until lesions are healed Followup with private physician/lead applier Take all of Bactrim as directed May use ibuprofen or Tylenol for pain relief Followup with PMD in one week if no resolution Make appointment with lead applier for evaluation when possible - Post Discharge Activity Forms/Work/School Notes: Back to Work
== END 2018-11-20 18:21 | disposition home or self-care (01) ==
LOC: JERFT 16:26
DX: L02.214 Cutaneous abscess of groin (principal); Z87.891 Personal history of nicotine dependence; F41.0 Panic disorder [episodic paroxysmal anxiety]
CPT/HCPCS: 87070; 87186; 87205; 99281-25

== ENCOUNTER 2019-02-26 11:36 | Emergency (ER) | payer OTHER ==
[2019-02-26 11:43] VITALS: BP 123/77; PULSE 94; TEMP 98.4; BMI 35.7
[2019-02-26] MEDS ORDERED: IBUPROFEN 600 MG TABLET (FP) PO ONE (11:59)
[2019-02-26] MEDS ORDERED: ACETAMINOPHEN 500 MG TABLET (FP) PO ONE (11:59)
--- NOTE | 2019-02-26 12:07 | PDOC ---
History of Present Illness - General Chief Complaint: Abscess Boil Stated Complaint: ABCESS RT BUTTOCK Time Seen by Provider: 02/26/19 11:56 - History of Present Illness Initial Comments: 02/26/19 12:02 33-year-old female without comorbidities presents for evaluation of an abscess on her right buttocks systemic symptoms. Past History - Past Medical History Allergies/Adverse Reactions: Allergies Allergy/AdvReac Type Severity Reaction Status Date / Time vancomycin Allergy Intermediate facial Verified 11/20/18 16:39 itching, swelling Home Medications: Ambulatory Orders Cephalexin [Keflex] 500 mg PO QID #40 capsule 02/26/19 Ibuprofen [Motrin -] 600 mg PO TID #30 tablet 02/26/19 Sulfamethoxazole/Trimethoprim [Bactrim Ds -] 1 tab PO BID #14 tablet 02/26/19 COPD: No Psychiatric Problems: Yes (anxiety,panic attacks) - Reproductive History (#): 2 Para: 1 Spontaneous : 1 - Immunization History Immunization Up to Date: Yes - Suicide/Smoking/Psychosocial Hx Smoking Status: Yes Smoking History: Never smoked Have you smoked in the past 12 months: Yes Number of Cigarettes Smoked Daily: 5 If you are a former smoker, when did you quit?: 2yrs Information on smoking cessation initiated: No 'Breaking Loose' booklet given: 03/22/14 Hx Alcohol Use: No Drug/Substance Use Hx: No Substance Use Type: None Hx Substance Use Treatment: No Review of Systems - Review of Systems Constitutional: No: Fever Integumentary: Yes: See HPI *Physical Exam - Vital Signs Last Vital Signs Temp Pulse Resp BP Pulse Ox 98.4 F 94 H 20 123/77 100 02/26/19 11:41 02/26/19 11:41 02/26/19 11:41 02/26/19 11:41 02/26/19 11:41 - Physical Exam Comments: 02/26/19 12:03 Female nurse in the room the entire time. There is a large erythematous indurated warm area without fluctuance on the medial aspect of the right buttocks extending superiorly into the right inguinal area. There is a small focal subcentimeter area of drainage superiorly in the right inguinal area. Again no focal fluctuance the area is indurated and firm. Medical Decision Making - Medical Decision Making 02/26/19 12:04 This is a forming abscess that is not ready to be incised and drained. Recommended warm compresses and sitz baths Tylenol and Motrin for pain Bactrim and Keflex follow-up with general surgery *DC/Admit/Observation/Transfer Diagnosis at time of Disposition: Abscess - Discharge Dispostion Disposition: HOME Condition at time of disposition: Stable Decision to Admit order: No - Prescriptions Prescriptions: Cephalexin [Keflex] 500 mg PO QID #40 capsule Ibuprofen [Motrin -] 600 mg PO TID #30 tablet Sulfamethoxazole/Trimethoprim [Bactrim Ds -] 1 tab PO BID #14 tablet - Referrals Referrals: Caleb Connors MD [Staff Physician] - - Patient Instructions Printed Discharge Instructions: DI for Skin Abscess Additional Instructions: Warm sitz baths and compresses multiple times a day please take the antibiotics as directed. Tylenol and Motrin as directed for pain. Return to the emergency room for worsening symptoms. Follow-up with general surgery in 1-2 days without fail for further evaluation and treatment options. - Post Discharge Activity
--- NOTE | 2019-02-26 13:59 | PDOC ---
History of Present Illness - General Chief Complaint: Abscess Boil Stated Complaint: ABCESS RT BUTTOCK Time Seen by Provider: 02/26/19 11:56 History Source: Patient Exam Limitations: No Limitations - History of Present Illness Initial Comments: 02/27/19 12:18 33 yo F with no past medical history presents to the ED with right buttock abscess. Per the patient, she has had this in the past before that required an ID "years" ago with an inability to quantify the amount of years. The current abscess has been ongoing for the past 1 week without drainage or bleeding. Denies trauma or lacerations to the area. Denies the following: fever, chills, nausea, vomiting, chest pain, SOB, abdominal pain, dysuria, hematuria, diarrhea , vaginal bleeding, vaginal discharge, pelvic paresthesia, and red streaks. Denies use of IVDA. Allergies: Vancomycin Surgery: C/S Social: Denies tobacco, alcohol, and substance abuse. Past History - Past Medical History Allergies/Adverse Reactions: Allergies Allergy/AdvReac Type Severity Reaction Status Date / Time vancomycin Allergy Intermediate facial Verified 11/20/18 16:39 itching, swelling Home Medications: Ambulatory Orders Cephalexin [Keflex] 500 mg PO QID #40 capsule 02/26/19 Ibuprofen [Motrin -] 600 mg PO TID #30 tablet 02/26/19 Sulfamethoxazole/Trimethoprim [Bactrim Ds -] 1 tab PO BID #14 tablet 02/26/19 COPD: No Psychiatric Problems: Yes (anxiety,panic attacks) - Reproductive History (#): 2 Para: 1 Spontaneous : 1 - Immunization History Immunization Up to Date: Yes - Suicide/Smoking/Psychosocial Hx Smoking Status: Yes Smoking History: Never smoked Have you smoked in the past 12 months: Yes Number of Cigarettes Smoked Daily: 5 If you are a former smoker, when did you quit?: 2yrs Information on smoking cessation initiated: No 'Breaking Loose' booklet given: 03/22/14 Hx Alcohol Use: No Drug/Substance Use Hx: No Substance Use Type: None Hx Substance Use Treatment: No Review of Systems - Review of Systems Able to Perform ROS?: Yes Is the patient limited Croatian proficient: No Constitutional: No: Chills, Diaphoresis, Fever, Weakness HEENTM: No: Eye Pain, Ear Pain, Nose Pain, Throat Pain, Mouth Pain Respiratory: No: Cough, Shortness of Breath, Hemoptysis Cardiac (ROS): No: Chest Pain, Lightheadedness, Palpitations, Syncope, Chest Tightness ABD/GI: No: Constipated, Diarrhea, Nausea, Rectal Bleeding, Vomiting, Tarry Stools : No: Burning, Dysuria, Hematuria, Incontinence Musculoskeletal: No: Back Pain, Joint Pain, Muscle Weakness, Neck Pain Integumentary: No: Bruising, Erythema, Rash Neurological: No: Headache, Numbness, Tingling, Tremors Psychiatric: No: Change in Appetite Endocrine: No: Unexplained Weight Gain Hematologic/Lymphatic: No: Anemia *Physical Exam - Vital Signs Last Vital Signs Temp Pulse Resp BP Pulse Ox 98.4 F 94 H 20 123/77 100 02/26/19 11:41 02/26/19 11:41 02/26/19 11:41 02/26/19 11:41 02/26/19 11:41 - Physical Exam General Appearance: Yes: Nourished, Appropriately Dressed, Obese. No: Apparent Distress, Intoxicated HEENT: positive: EOMI, TOR, Normal Voice, Symmetrical, Pharynx Normal, Hearing Grossly Normal. negative: Pale Conjunctivae, Scleral Icterus (R), Scleral Icterus (L), Muffled/Hoarse voice, Pharyngeal Erythema, Tonsillar Exudate, Tonsillar Erythema, Nasal Congestion, Rhinorrhea, Sinus Tenderness, Excessive drooling Neck: positive: Trachea midline, Supple. negative: Tender, Lymphadenopathy (R) , Lymphadenopathy (L), Tender lateral, Tender midline Respiratory/Chest: positive: Lungs Clear, Normal Breath Sounds. negative: Chest Tender, Respiratory Distress, Accessory Muscle Use, Crackles, Rales, Rhonchi, Stridor, Wheezing Cardiovascular: positive: Regular Rhythm, Regular Rate, S1, S2. negative: Systolic Murmur Gastrointestinal/Abdominal: positive: Normal Bowel Sounds, Flat, Soft. negative : Tender, Distended, Guarding, Rebound, Tenderness Rectal Exam: positive: other (patient has a 2x3cm fluctuance without discharge located in the inferior medial aspect of the right buttock with surrounding edema. ) Lymphatic: negative: Adenopathy Musculoskeletal: positive: Normal Inspection. negative: CVA Tenderness, Vertebral Tenderness Extremity: positive: Normal Capillary Refill, Normal Inspection, Normal Range of Motion. negative: Tender, Swelling, Calf Tenderness Integumentary: positive: Normal Color, Dry, Warm. 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 intact, Fully Oriented, Alert, Normal Mood/ Affect Procedures - Incision and Drainage I&D Site: Right: Buttock (inferior medial gluteal) Betadine cleansed: Yes Anesthesia: 1% Lidocaine Volume(ml): 6 Blade Size: 11 Attempts: 1 Iodinated Packin/ in Plain Packing: No Complications: none Dressing: Yes ED Treatment Course - Medications Given in the ED: ED Medications Discontinued Medications Generic Name Dose Route Start Last Admin Trade Name Ponchoq PRN Reason Stop Dose Admin Acetaminophen 1,000 mg 02/26/19 11:59 02/26/19 12:16 Tylenol - PO 02/26/19 12:00 1,000 mg ONCE ONE Administration Ibuprofen 600 mg 02/26/19 11:59 02/26/19 12:16 Motrin - PO 02/26/19 12:00 Not Given ONCE ONE Medical Decision Making - Medical Decision Making 33 yo F with no past medical history presents to the ED with right buttock abscess. Initial vitals: Initial Vital Signs Temp Pulse Resp BP Pulse Ox 98.4 F 94 H 20 123/77 100 02/26/19 11:41 02/26/19 11:41 02/26/19 11:41 02/26/19 11:41 02/26/19 11:41 Work up: abscess located in the right buttock. US shows fluid collection without flow. Will ID. Refer to procedure note. Dispo: Patient sent home with keflex and bactrim and given instructions to return in 48 hours for wound packing removal. Patient understands. 02/27/19 12:24 *DC/Admit/Observation/Transfer Diagnosis at time of Disposition: Abscess - Discharge Dispostion Disposition: HOME Condition at time of disposition: Stable - Prescriptions Prescriptions: Cephalexin [Keflex] 500 mg PO QID #40 capsule Ibuprofen [Motrin -] 600 mg PO TID #30 tablet Sulfamethoxazole/Trimethoprim [Bactrim Ds -] 1 tab PO BID #14 tablet - Referrals Referrals: Caleb Connors MD [Staff Physician] - - Patient Instructions Printed Discharge Instructions: DI for Skin Abscess Additional Instructions: Warm sitz baths and compresses multiple times a day please take the antibiotics as directed. Tylenol and Motrin as directed for pain. Return to the emergency room for worsening symptoms. Follow-up with general surgery in 1-2 days without fail for further evaluation and treatment options. please return to the emergency department for packing removal in 48 hours after discharge. please return sooner if you develop fevers. thank you. - Post Discharge Activity Forms/Work/School Notes: Back to Work
[2019-02-26] MEDS ORDERED: HYDROmorphone HCL CARPU-JECT 2 MG/1 ML DISP.SYRIN IM ONE (14:51)
[2019-02-26] MEDS ORDERED: LIDOCAINE HCL 1% PRESERVATIVE FREE - 30ML VIAL CAUD ONE (15:11)
[2019-02-26] MEDS ORDERED: LIDOCAINE HCL 1%, 10 MG/ML (20ML VIAL) ONE (15:26)
[2019-02-26] MEDS ORDERED: HYDROmorphone HCl 2 MG/ML VIAL ONE (15:27)
--- NOTE | 2019-02-26 16:34 | PDOC ---
Documentation entered by Dominik Dobson SCRIBE, acting as scribe for Jin Light MD. Jin Light MD: This documentation has been prepared by the airameOlya Elijah, SCRIBE, under my direction and personally reviewed by me in its entirety. I confirm that the documentation accurately reflects all work, treatment, procedures, and medical decision making performed by me. Attending Attestation - Resident Resident Name: Michel Patel - ED Attending Attestation I have performed the following: I have examined & evaluated the patient, The case was reviewed & discussed with the resident, I agree w/resident's findings & plan - HPI HPI: 02/26/19 15:11 Patient is a 33 year old female with a significant past medical history of anxiety who presents to the ED with an abscess on the right buttock. Allergies: Vancomycin PCP: Dr. Swift - Physicial Exam PE: 02/26/19 16:31 pt awake, alert, obese, in mild distress nc, atr perrla, eomi cta rrr + 2cm areao fluctuance to right gluteal area - Medical Decision Making 02/26/19 16:33 pt is a 33 y/o female wtih gluteal abscess. abscess i&Ded by Dr. Patel. abx prescribed. will d/c with return in 48 hrs for packing removal.
== END 2019-02-26 16:45 | disposition home or self-care (01) ==
LOC: JERFT 11:36 → JER 11:36
PROC: 0H98XZZ Drainage of Buttock Skin, External Approach (ICD-10-PCS; principal; 2019-02-26)
PROC: 3E023NZ Introduction of Analgesics, Hypnotics, Sedatives into Muscle, Percutaneous Approach (ICD-10-PCS; 2019-02-26)
DX: L02.31 Cutaneous abscess of buttock (principal); Z72.0 Tobacco use; F41.9 Anxiety disorder, unspecified
CPT/HCPCS: 10060; 96372; 99282-25

== ENCOUNTER 2019-08-06 17:27 | Emergency (ER) | payer OTHER ==
--- NOTE | 2019-08-06 17:43 | PDOC ---
Rapid Medical Evaluation Medical Evaluation: Allergies Allergy/AdvReac Type Severity Reaction Status Date / Time vancomycin Allergy Intermediate facial Verified 11/20/18 16:39 itching, swelling 08/06/19 17:43 I have performed a brief in-person evaluation of this patient. The patient presents with a chief complaint of:Buttocks abscess x 3 days. Recurrent. Tetanus UTD Pertinent physical exam findings:stable, NAD I have ordered the following:nothing The patient will proceed to the ED for further evaluation. Discharge Disposition - Diagnosis Abscess - Referrals - Patient Instructions - Post Discharge Activity
[2019-08-06 17:52] VITALS: BP 125/75; PULSE 110; TEMP 98.1; BMI 36.6
--- NOTE | 2019-08-06 18:37 | PDOC ---
History of Present Illness - General Chief Complaint: Abscess Boil Stated Complaint: GROIN PAIN Time Seen by Provider: 08/06/19 17:46 - History of Present Illness Initial Comments: 08/06/19 18:35 34-year-old female presents for evaluation of painful area in her left groin for the last 2 days no systemic symptoms. Past History - Past Medical History Allergies/Adverse Reactions: Allergies Allergy/AdvReac Type Severity Reaction Status Date / Time vancomycin Allergy Intermediate facial Verified 08/06/19 17:48 itching, swelling Home Medications: Ambulatory Orders Cephalexin [Keflex] 500 mg PO QID #40 capsule 02/26/19 Ibuprofen [Motrin -] 600 mg PO TID #30 tablet 02/26/19 Sulfamethoxazole/Trimethoprim [Bactrim Ds -] 1 tab PO BID #14 tablet 02/26/19 COPD: No Psychiatric Problems: Yes (anxiety,panic attacks) - Reproductive History (#): 2 Para: 1 Spontaneous : 1 - Immunization History Immunization Up to Date: Yes - Psycho Social/Smoking Cessation Hx Smoking Status: Yes Smoking History: Never smoked Have you smoked in the past 12 months: Yes Number of Cigarettes Smoked Daily: 5 If you are a former smoker, when did you quit?: 2yrs Information on smoking cessation initiated: No 'Breaking Loose' booklet given: 03/22/14 Hx Alcohol Use: No Drug/Substance Use Hx: No Substance Use Type: None Hx Substance Use Treatment: No Review of Systems - Review of Systems Constitutional: No: Fever Integumentary: Yes: See HPI *Physical Exam - Vital Signs Last Vital Signs Temp Pulse Resp BP Pulse Ox 98.1 F 110 H 17 125/75 100 08/06/19 17:48 08/06/19 17:48 08/06/19 17:48 08/06/19 17:48 08/06/19 17:48 - Physical Exam 08/06/19 18:36 There are multiple areas of fluctuance on the right groin just outside the labia with erythema induration and extreme sensitivity no drainage Medical Decision Making - Medical Decision Making 08/06/19 18:36 Multiple abscesses, treatment options discussed patient has refused I&D recommended warm compresses p.o. Keflex and Bactrim and follow-up with [facility] Discharge - Discharge Information Problems reviewed: Yes Clinical Impression/Diagnosis: Abscess Condition: Stable Disposition: HOME - Admission No - Follow up/Referral Referrals: Glenis Swift MD [Primary Care Provider] - Juan A Vance MD [Staff Physician] - - Patient Discharge Instructions Additional Instructions: Warm compresses multiple times a day will help encourage drainage. Please return to the emergency room should you change your mind and want your abscess drained. This abscess requires drainage. You may start the antibiotics and take them as directed Tylenol and Motrin as directed for pain. In the meantime follow-up with obstetrics and gynecology in 1 to 2 days for further evaluation and treatment options. - Post Discharge Activity
== END 2019-08-06 18:55 | disposition home or self-care (01) ==
LOC: JERFT 17:27
DX: L02.214 Cutaneous abscess of groin (principal); Z88.1 Allergy status to other antibiotic agents; Z86.59 Personal history of other mental and behavioral disorders
CPT/HCPCS: 99281-25

== ENCOUNTER 2019-08-14 20:25 | Emergency (ER) | payer OTHER ==
--- NOTE | 2019-08-14 20:54 | PDOC ---
Rapid Medical Evaluation Chief Complaint: Itching Time Seen by Provider: 08/14/19 20:51 Medical Evaluation: Allergies Allergy/AdvReac Type Severity Reaction Status Date / Time vancomycin Allergy Intermediate facial Verified 08/06/19 17:48 itching, swelling 08/14/19 20:51 I performed a brief in-person evaluation of this patient. Healthy 34-year-old female with hives unrelieved by Benadryl. Pertinent physical exam findings: Diffuse, blanching hives not involving palms, soles, or face. No uvular or tongue edema. Lungs CTAB. I have ordered the following: None Patient to proceed to [facility] for further evaluation. Discharge Disposition - Diagnosis Allergic reaction - Referrals - Patient Instructions - Post Discharge Activity
== END 2019-08-15 | disposition left against medical advice (07) ==
LOC: JER 20:25
CPT/HCPCS: 99281-25

== ENCOUNTER 2021-01-01 16:54 | Emergency (ER) | payer OTHER ==
[2021-01-01 17:03] VITALS: BP 122/82; PULSE 98; TEMP 98.4; BMI 36.6
[2021-01-01] MEDS ORDERED: LIDOCAINE 5% TOPICAL PATCH TP ONE (17:35)
[2021-01-01] MEDS ORDERED: KETOROLAC TROMETHAMINE 60 MG/2 ML VIAL IM ONE (17:35)
[2021-01-01] MEDS ORDERED: KETOROLAC TROMETHAMINE 30 MG/1 ML VIAL ONE (17:48)
[2021-01-01] MEDS ORDERED: LIDOCAINE 5% TOPICAL PATCH ONE (17:48)
== END 2021-01-01 18:08 | disposition home or self-care (01) ==
LOC: JERFT 16:54
PROC: 3E0233Z Introduction of Anti-inflammatory into Muscle, Percutaneous Approach (ICD-10-PCS; principal; 2021-01-01)
DX: B02.9 Zoster without complications (principal)
CPT/HCPCS: 99284-25

== ENCOUNTER 2022-01-02 18:59 | Emergency (ER) | payer OTHER ==
[2022-01-02 19:12] VITALS: BP 102/70; PULSE 99; TEMP 98.6; BMI 35.5
[2022-01-02] MEDS ORDERED: IBUPROFEN 600 MG TABLET (FP) PO ONE ×2 (21:15→21:35)
== END 2022-01-02 22:21 | disposition home or self-care (01) ==
LOC: JERFT 18:59
DX: M54.2 Cervicalgia (principal); M54.50 Low back pain, unspecified; V49.40XA Driver injured in collision with unspecified motor vehicles in traffic accident, initial encounter
CPT/HCPCS: 72040-TC; 72100-TC-FY; 99284-25

== ENCOUNTER 2023-12-20 19:34 | Emergency (ER) | payer OTHER ==
[2023-12-20 19:53] VITALS: BP 114/79; PULSE 95; RESP 20; TEMP 98.5; BMI 36.3
[2023-12-20] MEDS ORDERED: oxyCODONE HCL 5 MG TABLET PO ONE (20:30)
[2023-12-20] MEDS ORDERED: AMOX TR/POT CLAV 875MG/125MG TABLETS (FP) ONE (21:41)
[2023-12-20] MEDS: AMOX TR/POT CLAV 875MG/125MG TABLETS (FP) PO ONE (21:44)
== END 2023-12-20 21:59 | disposition home or self-care (01) ==
LOC: JERFT 19:34
DX: N64.4 Mastodynia (principal); N61.0 Mastitis without abscess
CPT/HCPCS: 84703; 99283-25

== ENCOUNTER 2024-04-23 09:37 | Emergency (ER) | payer OTHER ==
[2024-04-23 10:06] VITALS: BP 108/76; PULSE 90; RESP 16; TEMP 97.8; BMI 35.5
[2024-04-23] MEDS ORDERED: DOXYCYCLINE HYCLATE 100 MG CAPSULE PO ONE (11:22)
[2024-04-23] MEDS ORDERED: ACETAMINOPHEN 325 MG TABLET (FP) ONE (11:22)
[2024-04-23] MEDS: ACETAMINOPHEN 325 MG TABLET (FP) PO ONE (11:28)
[2024-04-23] MEDS: DOXYCYCLINE HYCLATE 100 MG CAPSULE PO ONE (11:30)
== END 2024-04-23 11:39 | disposition home or self-care (01) ==
LOC: JERFT 09:37
DX: L73.2 Hidradenitis suppurativa (principal)
CPT/HCPCS: 99283-25